=== PATIENT | female | born 1955 | race Caucasian/White ===

== ENCOUNTER → 2021-01-31 | Outpatient (CLI) | payer MEDICARE ==
[~2021-01-31] MED LIST: ATORVASTATIN CA10 MG PO; CYCLOBENZAPRINE5 MG PO; OMEPRAZOLE40 MG PO; ULTRAM 50MG50 MG PO; VIACTIV SOFT C1 EACH PO; VITAMIN B-122500 MCG PO
== END ==
LOC: MRI 08:54
PROVIDERS: ATTEND Plastic Surgery
DX: M25.531 Pain in right wrist (principal)

== ENCOUNTER → 2021-03-10 | Day surgery (SDC) | payer MEDICARE ==
[2021-03-03 11:00] LABS: BASOPHILS % 0.5 % (0.0-1.0); EOSINOPHILS # (AUTO) 0.1 (0.0-0.4); EOSINOPHILS % 1.4 % (0.0-6.0); HEMATOCRIT 42.1 % (34.2-44.1); HEMOGLOBIN 14.3 g/dL (12.0-16.0); LYMPHOCYTES # (AUTO) 2.2 (1.0-3.2); LYMPHOCYTES % 34.5 % (18.0-39.1); MEAN CORPUSCULAR HEMOGLOBIN 32.6 pg (28-32); MEAN CORPUSCULAR VOLUME 96.1 fL (81-99); MONOCYTES # (AUTO) 0.6 (0.2-0.8); MONOCYTES % 9.3 % (4.4-11.3); NEUTROPHILS # (AUTO) 3.4 (2.1-6.9); PLATELET COUNT 337 x10e3/uL (140-360); RED BLOOD COUNT 4.38 x10e6/uL (3.6-5.1); RED CELL DISTRIBUTION WIDTH 11.7 % (11.7-14.4)
[~2021-03-10] MED LIST changes: +BUPIVACAINE HCL 0.5% INJ 30 ML VIAL INJ ONE; +CEFAZOLIN SOD 1 GM/NS 50ML 50 ML IV ONE; +LIDOCAINE HCL 2% LOCAL 20 ML VIAL ONE; +LIDOCAINE HCL 2% LOCAL INJ 5 ML SDV VIAL INJ ONE; +MELATONIN3 M1 PO; +MUPIROCIN 2% OINT 22 GM TUBE ONE; +POVIDONE IODINE 0.05% 0.05 % ML PO ONE; +PROPOFOL IV EMULSION 10 MG/ML 20 ML VIAL ONE; +PROTONIX20 MG PO; +ROPIVACAINE 0.5% 5 MG/ML 30 ML SDV ONE; +TRETIN-X 0.0251 EAC1; +TYLENOL EXTRA500 MG PO; +ULTRAM50 MG PO
[2021-03-10 11:15] VITALS: BP 141/86
== END | disposition home or self-care (01) ==
LOC: OR 07:10
PROVIDERS: ATTEND Plastic Surgery
DX: M19.031 Primary osteoarthritis, right wrist (principal); M25.331 Other instability, right wrist; E78.5 Hyperlipidemia, unspecified; K21.9 Gastro-esophageal reflux disease without esophagitis; Z88.6 Allergy status to analgesic agent; Z88.8 Allergy status to other drugs, medicaments and biological substances; Z01.810 Encounter for preprocedural cardiovascular examination; Z01.812 Encounter for preprocedural laboratory examination; Z01.818 Encounter for other preprocedural examination; Z20.822 Contact with and (suspected) exposure to COVID-19
CPT/HCPCS: 25825; 36415; 71046; 85025; 93005; C1713 ×5; J0690; J2001 ×2; J2704; J2795; U0002